=== PATIENT | male | born 1955 | race Asian ===

== ENCOUNTER → 2021-03-21 | Outpatient (CLI) | payer MEDICARE, OTHER | END | disposition home or self-care (01) | LOC: RADMN 11:55 | PROVIDERS: ATTEND Podiatrist Foot & Ankle Surgery | DX: T14.8XXA Other injury of unspecified body region, initial encounter (principal); M77.31 Calcaneal spur, right foot; M25.774 Osteophyte, right foot; X58.XXXA Exposure to other specified factors, initial encounter; Y93.89 Activity, other specified; Y92.89 Other specified places as the place of occurrence of the external cause; Y99.8 Other external cause status | CPT/HCPCS: 73650-TC ==